=== PATIENT | female | born 1955 | race Caucasian/White ===

== ENCOUNTER → 2024-11-18 | Outpatient (CLI) | payer MEDICARE ==
--- NOTE | 2024-11-19 07:02 | HMCIMG ---
EXAMINATION: ULTRASOUND OF THE ABDOMEN (LIMITED) WITH COLOR DOPPLER. CLINICAL HISTORY: Right upper quadrant pain. COMPARISON: None. TECHNIQUE: Real-time grayscale ultrasound images of the abdomen. In addition, color Doppler is medically necessary to perform in order to evaluate vascularity and blood flow. FINDINGS: Liver: Normal in caliber, the right hepatic lobe measures 12.4 cm in the craniocaudal dimension. There is increased echogenicity of the hepatic parenchyma. There is no focal hepatic abnormality or intrahepatic biliary ductal dilatation. There is normal spectral Doppler of the main portal vein. Gallbladder: Post cholecystectomy status. Common bile duct is normal in caliber, measuring 0.30 cm. Pancreas: Normal in caliber and echotexture. No calcification or dilated pancreatic duct. The right kidney is normal in caliber, the right kidney measures 9.2 x 4.5 x 3.4 cm in craniocaudal, AP, and transverse dimensions respectively. There is normal renal cortical thickness, and cortical echogenicity. There is no renal calculus or hydronephrosis. IMPRESSION: Hepatic steatosis. Post cholecystectomy status. /Romeo
== END | disposition home or self-care (01) ==
LOC: RAH 11:34
PROVIDERS: ATTEND Family Medicine
DX: K76.0 Fatty (change of) liver, not elsewhere classified (principal); R10.11 Right upper quadrant pain; Z90.49 Acquired absence of other specified parts of digestive tract
CPT/HCPCS: 76705